=== PATIENT | male | born 1990 | race American Indian/Alaskan Native ===

== ENCOUNTER 2017-06-15 12:34 | Emergency (ER) | payer SELFPAY ==
[2017-06-15 12:50] VITALS: BP 119/71
--- NOTE | 2017-06-15 13:20 | XRay Report ---
RIGHT HAND, 3 views: History: Laceration. There is soft tissue bandaging overlying the lateral and. No obvious radiopaque foreign body. The bony architecture is intact. Bony alignment is normal. The joint spaces appear preserved. Chronic injury to the fifth metatarsal is suspected, correlate with history. IMPRESSION: Soft tissue injury. 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
--- NOTE | 2017-06-15 13:33 | Emergency Department Report ---
- General Chief Complaint: Wound/Laceration Stated Complaint: RIGHT HAND INJURY/FALL Time Seen by Provider: 06/15/17 13:06 Source: patient Mode of arrival: Ambulatory Limitations: No Limitations - History of Present Illness Initial Comments: 26-year-old male presents with complaint of laceration to back of the right hand. Patient states that last night at approximately 1 AM he was leaning against a window with his hand at its relatives home. Hand went through a window and experienced laceration back of right hand. Patient states his tetanus status is up-to-date as of 2015. Denies sustaining injuries to any other body part other than right hand. Visible 2-3 inch laceration straight across area of fifth metacarpal right hand. Hand covered in gauze upon initial presentation. I unwrapped. No current bleeding. Denies foreign body sensation right hand. Onset/Timin -: hour(s) Extremity Location: Right: Hand Place: home Patient Tetanus UTD: Yes (2016) Context: accidental Associated Symptoms: pain Treatments Prior to Arrival: cold therapy - Related Data Previous Rx's Medication Instructions Recorded Last Taken Type Cephalexin [Keflex] 500 mg PO Q12HR #10 cap 06/15/17 Unknown Rx Ibuprofen [Motrin] 800 mg PO Q8HR PRN #30 tablet 06/15/17 Unknown Rx Allergies Allergy/AdvReac Type Severity Reaction Status Date / Time No Known Allergies Allergy Unverified 06/15/17 12:50 ED Review of Systems ROS: Stated complaint: RIGHT HAND INJURY/FALL Other details as noted in HPI Constitutional: denies: chills, fever Eyes: denies: eye pain, eye discharge, vision change ENT: denies: ear pain, throat pain Respiratory: denies: cough, shortness of breath, wheezing Cardiovascular: denies: chest pain, palpitations Endocrine: no symptoms reported Gastrointestinal: denies: abdominal pain, nausea, diarrhea Genitourinary: denies: urgency, dysuria Musculoskeletal: denies: back pain, joint swelling, arthralgia Skin: denies: rash, lesions Neurological: denies: headache, weakness, paresthesias Psychiatric: denies: anxiety, depression Hematological/Lymphatic: denies: easy bleeding, easy bruising ED Past Medical Hx - Social History Smoking Status: Current Every Day Smoker Substance Use Type: Marijuana - Medications Home Medications: Home Medications Medication Instructions Recorded Confirmed Last Taken Type Cephalexin [Keflex] 500 mg PO Q12HR #10 cap 06/15/17 Unknown Rx Ibuprofen [Motrin] 800 mg PO Q8HR PRN #30 tablet 06/15/17 Unknown Rx ED Physical Exam - General Limitations: No Limitations General appearance: alert, in no apparent distress - Head Head exam: Present: atraumatic, normocephalic - Eye Eye exam: Present: normal appearance, PERRL, EOMI - ENT ENT exam: Present: mucous membranes moist - Neck Neck exam: Present: normal inspection - Respiratory Respiratory exam: Present: normal lung sounds bilaterally. Absent: respiratory distress - Cardiovascular Cardiovascular Exam: Present: regular rate, normal rhythm. Absent: systolic murmur, diastolic murmur, rubs, gallop - GI/Abdominal GI/Abdominal exam: Present: soft, normal bowel sounds - Rectal Rectal exam: Present: deferred - Extremities Exam Extremities exam: Present: normal inspection - Expanded Upper Extremity Exam Right Shoulder Exam: Present: normal inspection, full ROM Upper Arm exam: Present: normal inspection, full ROM Elbow exam: Present: normal inspection, full ROM Forearm Wrist exam: Present: normal inspection, full ROM Hand Wrist exam: Present: tenderness (tenderness overlying laceration site right hand) Hand L/R Back: 1 - Laceration site here Neuro motor exam: Present: wrist extension intact, thumb opposition intact, thumb IP flexion intact, thumb adduction intact, fingers 2-5 abduction intact Neurosensory exam: Present: radial nerve intact, ulnar nerve intact, median nerve intact Vascular: Present: normal capillary refill - Back Exam Back exam: Present: normal inspection - Neurological Exam Neurological exam: Present: alert, oriented X3 - Psychiatric Psychiatric exam: Present: normal affect, normal mood - Skin Skin exam: Present: warm, dry, intact, normal color. Absent: rash ED Course Vital Signs 06/15/17 12:46 Temperature 98.4 F Pulse Rate 56 L Blood Pressure 119/71 O2 Sat by Pulse 98 Oximetry - Laceration /Wound Repair Right Distal Hand Wound Location: upper extremity Wound Length (cm): 7 Wound's Depth, Shape: linear Wound Explored: clean Irrigated w/ Saline (ccs): 1,000 Anesthesia: 1% Lidocaine Volume Anesthetic (ccs): 8 Wound Debrided: minimal Wound Repaired With: sutures Suture Size/Type: 4:0, nylon Number of Sutures: 6 Layer Closure?: No Sterile Dressing Applied?: Yes Progress: Area infiltrated with lidocaine. Good local anesthesia achieved. 5 sutures placed with good closure of wound. No foreign body on probing of the wound. Procedure tolerated well. ED Medical Decision Making - Medical Decision Making A/P: Right hand Laceration 1- sutures to be removed in 7-10 days 2- tetanus updated in 2016 3- Motrin when necessary, triple antibiotic ointment, short course Keflex 4- pt advised to return to the ED for any fevers chills pus drainage erythema at site of laceration Critical care attestation.: If time is entered above; I have spent that time in minutes in the direct care of this critically ill patient, excluding procedure time. ED Disposition Clinical Impression: Laceration of right hand Qualifiers: Encounter type: initial encounter Foreign body presence: without foreign body Qualified Code(s): S61.411A - Laceration without foreign body of right hand, initial encounter Disposition: DC-01 TO HOME OR SELFCARE Is pt being admited?: No Does the pt Need Aspirin: No Condition: Stable Instructions: Laceration (ED), Suture Care (ED) Additional Instructions: Sutures to be removed in 7-10 days Prescriptions: Cephalexin [Keflex] 500 mg PO Q12HR #10 cap Ibuprofen [Motrin] 800 mg PO Q8HR PRN #30 tablet PRN Reason: Pain Referrals: [facility] [Outside] - 3-5 Days Forms: Accompanied Note, Work/School Release Form(ED) Time of Disposition: 13:32
== END 2017-06-15 14:11 | disposition home or self-care (01) ==
LOC: ED 12:34
DX: S61.411A Laceration without foreign body of right hand, initial encounter (principal); F17.200 Nicotine dependence, unspecified, uncomplicated; F12.10 Cannabis abuse, uncomplicated; W22.8XXA Striking against or struck by other objects, initial encounter; Y93.89 Activity, other specified; Y92.098 Other place in other non-institutional residence as the place of occurrence of the external cause; Y99.8 Other external cause status
CPT/HCPCS: 99283